=== PATIENT | female | born 1990 | race Caucasian/White ===

== ENCOUNTER 2022-09-28 16:36 | Observation (INO) | payer BC, OTHER ==
[2022-09-28 17:05] LABS: #Eosinphils 0.1 10x3/uL (0.0-0.5); #Monocytes 0.4 10x3/uL (0.0-1.1); %Basophils 0.4 % (0.0-2.0); %Eosinophils 0.7 % (0.0-6.0); %Lymphocytes 19.1 % (18.0-47.0); %Monocytes 5.3 % (0.0-10.0); %Neutrophils 74.2 % (40.0-75.0); Hemoglobin 7.2 g/dL (12.0-15.5); Mean Corpuscular HGB CONC 34.3 g/dL (32.0-36.0); Mean Corpuscular Hemoglobin 32.3 pg (27.0-33.0); Mean Corpuscular Volume 94.1 fl (81.6-98.3); Mean Platelet Volume 9.9 fl (7.4-10.4); Platelet Count 180 10x3/uL (150-450); RBC Distribution Width 15.1 % (11.5-14.5); White Blood Cell (WBC) Count 8.1 10x3/uL (3.5-10.5)
[2022-09-28 17:09] LABS: BHCG - Serum POSITIVE (NEGATIVE); Pregs Control Background? CLEAR/WHITE (CLR/WHITE); Pregs Control Bar Appear? YES (CONTROL BAR)
[2022-09-28 17:19] LABS: ALT (SGPT) 10 U/L (8-55); AST (SGOT) 39 U/L (5-34); Albumin 4.2 g/dL (3.5-5.0); Alkaline Phosphatase 52 U/L (40-110); Anion Gap 15 mmol/L (10-20); BUN (Urea Nitrogen) 10 mg/dL (7.0-18.7); Bilirubin, Total 1.5 mg/dL (0.2-1.2); Calc. Creatinine Clearance 0 mL/min (70-130); Calcium 9.3 mg/dL (7.8-10.44); Carbon Dioxide 20 mmol/L (22-29); Chloride 107 mmol/L (98-107); Estimated GFR 108; Globulin 3.3 g/dL (2.4-3.5); Glucose 105 mg/dL (70-105); Potassium 3.5 mmol/L (3.5-5.1); Protein, Total 7.5 g/dL (6.0-8.3); Sodium 138 mmol/L (136-145)
[2022-09-28] MEDS ORDERED: PROPOFOL 0 ML ONE (17:24)
[2022-09-28] MEDS ORDERED: Midazolam HCl 2 mg/2 ml Vial ONE (17:24)
[2022-09-28] MEDS ORDERED: Ketamine 50 MG/ML (10ML VIAL) ONE ×2 (17:27→17:28)
[2022-09-28] MEDS ORDERED: Phenylephrine 40 MG/NS 250 ML 0 ML ONE (17:30)
[2022-09-28] MEDS ORDERED: Fentanyl 100 MCG/2 ML VIAL ONE ×3 (17:30→20:06)
[2022-09-28] MEDS ORDERED: Bupivacaine PF 0.5% 30 ML VIAL ONE (17:32)
[2022-09-28] MEDS ORDERED: EPINEPHrine 1 MG/ML AMP ONE (17:32)
[2022-09-28] MEDS ORDERED: CEFAZOLIN 1 GM VIAL ONE (17:59)
[2022-09-28 18:28] LABS: Hemoglobin 7.3 g/dL (12.0-15.5)
[2022-09-28] MEDS ORDERED: HYDROcodone/Acetaminophen 5/325 mg Tablet PO PRN ×2 (18:41)
[2022-09-28] MEDS ORDERED: Zolpidem Tartrate 5 MG TAB PO PRN (18:41)
[2022-09-28] MEDS ORDERED: Ondansetron PF 4 MG/2 ML Vial IVP PRN (18:41)
[2022-09-28] MEDS ORDERED: Morphine 4 MG/ML VIAL SLOW IVP PRN (18:41)
[2022-09-28] MEDS ORDERED: Morphine 2 MG/ML VIAL SLOW IVP PRN (18:41)
[2022-09-28 18:46] LABS: D-Dimer Test 32.37 mg/L FEU (0.19-0.50); INR-International Normal Ratio 1.1; PTT 22.6 sec (22.0-33.0); Prothrombin Time 11.7 sec (9.5-12.1)
[2022-09-28] MEDS ORDERED: Non-Formulary Medication 1 EACH PO PRN (20:13)
[2022-09-28] MEDS ORDERED: Ondansetron HCl/PF 4 MG/2 ML Vial IVP PRN (20:15)
[2022-09-28] MEDS ORDERED: Promethazine HCl 25 MG/ML VIAL IM/IV PRN (20:15)
[2022-09-28] MEDS ORDERED: Meperidine HCl/PF 25 MG/ML VIAL IV PRN (20:15)
[2022-09-28] MEDS: Sodium Chloride 0.9% 1,000 ML IV SCH (21:15)
[2022-09-28 23:15] LABS: Hemoglobin 8.5 g/dL (12.0-15.5); Mean Corpuscular HGB CONC 35.3 g/dL (32.0-36.0); Mean Platelet Volume 9.6 fl (7.4-10.4); Platelet Count 233 10x3/uL (150-450); RBC Distribution Width 15.7 % (11.5-14.5); Red Blood Cell (RBC) Count 2.74 10x6/uL (3.90-5.03); White Blood Cell (WBC) Count 10.5 10x3/uL (3.5-10.5)
[2022-09-29 03:59] VITALS: BMI 27.4
[2022-09-29] MEDS: Sodium Chloride 0.9% 1,000 ML IV SCH (05:45)
[2022-09-29 07:12] LABS: Hemoglobin 7.8 g/dL (12.0-15.5); Mean Corpuscular HGB CONC 35.5 g/dL (32.0-36.0); Mean Corpuscular Hemoglobin 31.3 pg (27.0-33.0); Mean Corpuscular Volume 88.4 fl (81.6-98.3); Mean Platelet Volume 9.8 fl (7.4-10.4); Platelet Count 224 10x3/uL (150-450); Red Blood Cell (RBC) Count 2.49 10x6/uL (3.90-5.03); White Blood Cell (WBC) Count 8.7 10x3/uL (3.5-10.5)
[2022-09-29 08:06] VITALS: BP 124/65; TEMP 98
== END 2022-09-29 10:03 | disposition home or self-care (01) ==
LOC: CSHERS 16:36 → CSHPP 20:48
PROVIDERS: ADMIT Obstetrics & Gynecology; ATTEND Obstetrics & Gynecology
PROC: 10T24ZZ Resection of Products of Conception, Ectopic, Percutaneous Endoscopic Approach (ICD-10-PCS; principal; 2022-09-28)
PROC: 0UB64ZZ Excision of Left Fallopian Tube, Percutaneous Endoscopic Approach (ICD-10-PCS; 2022-09-28)
DX: O00.102 Left tubal pregnancy without intrauterine pregnancy (principal); K66.1 Hemoperitoneum; O99.019 Anemia complicating pregnancy, unspecified trimester; D50.0 Iron deficiency anemia secondary to blood loss (chronic); Z88.8 Allergy status to other drugs, medicaments and biological substances
CPT/HCPCS: 36415; 36430; 76856; 80053; 84702; 84703; 85025; 85027; 85049; 85300; 85362; 85379; 85384; 85610; 85730; 86850; 86900; 86901; 88305; 96361; G0378; J0171; J0690; J2250; J2704; J3010; J7050; P9016; P9059; S0020

== ENCOUNTER 2023-09-20 10:06 | Outpatient (CLI) | payer BC | END 2023-09-20 10:07 | disposition home or self-care (01) | LOC: CSHCT 10:06 | PROVIDERS: ATTEND Neurological Surgery | DX: M54.50 Low back pain, unspecified (principal); M43.16 Spondylolisthesis, lumbar region; M51.36 Other intervertebral disc degeneration, lumbar region | CPT/HCPCS: 72131 ==